=== PATIENT | female | born 1945 | race Caucasian/White ===

== ENCOUNTER 2016-11-14 10:34 | Outpatient (CLI) | payer MEDICARE, OTHER | END 2016-11-14 10:35 | disposition home or self-care (01) | DX: Z12.31 Encounter for screening mammogram for malignant neoplasm of breast (principal); Z80.3 Family history of malignant neoplasm of breast ==

== ENCOUNTER 2016-11-14 11:22 | Outpatient (CLI) | payer MEDICARE, OTHER | END 2016-11-14 11:23 | disposition home or self-care (01) | DX: M54.6 Pain in thoracic spine (principal); M47.892 Other spondylosis, cervical region ==

== ENCOUNTER 2017-07-19 09:04 | Outpatient (CLI) | payer MEDICARE, OTHER ==
--- NOTE | 2017-07-19 11:39 | CT Report ---
CT CHEST WITHOUT CONTRAST: 07/19/2017 CLINICAL INDICATION: Cough, shortness of breath. COMPARISON: 10/02/2013 TECHNIQUE: Axial CT images of the chest were obtained without intravenous contrast. FINDINGS: The heart and great vessels demonstrate mild atherosclerotic calcification. No hilar or m ediastinal lymphadenopathy is present. The lungs demonstrate stable emphysema. Minimal atelectasis is present. No focal infiltrate, effusion, or pneumothorax is seen. No suspicious pulmonary nodule or mass lesion. Limited evaluation of upper abdominal structures demonstrates normal adrenal glands. Osseous structures demonstrate degenerative changes. IMPRESSION: STABLE EMPHYSEMA. NO SIGNIFICANT INTERVAL CHANGE. In accordance with CT protocol optimization, one or more of the following dose reduction techniques w ere utilized for this exam: automated exposure control, adjustment of mA and/or KV based on patient size, or use of iterative reconstructive technique. JOB #: [id number] EXT JOB #:[id number]
== END 2017-07-19 09:05 | disposition home or self-care (01) ==
LOC: DI 09:04
PROVIDERS: ATTEND Physician Assistant
DX: J43.9 Emphysema, unspecified (principal)
CPT/HCPCS: 71250

== ENCOUNTER 2017-11-20 08:19 | Outpatient (CLI) | payer MEDICARE, OTHER ==
--- NOTE | 2017-11-21 16:00 | Mammography Report ---
DIGITAL SCREENING MAMMOGRAM: 11/20/2017 CLINICAL INDICATION: A 72-year-old with a family history of breast cancer, for screening. COMPARISON: 11/2016, 11/2015, 11/2014, 10/2013, 10/2012, 10/2011, 06/2010. TECHNIQUE: Routine CC and MLO projections were obtained of the breasts. FINDINGS: The breasts demonstrate heterogeneously dense fibroglandular parenchyma bilaterally. Punctate, typically benign calcifications are present. No suspicious masses, clustered microcalcifications, or regions of architectural distortion are identified. IMPRESSION: BENIGN FINDINGS. RECOMMENDATION: ROUTINE ANNUAL SCREENING UNLESS OTHERWISE CLINICALLY INDICATED. BIRADS CATEGORY 2-BENIGN FINDINGS. STANDARD QUALIFYING STATEMENTS: 1. This examination was reviewed with the aid of Computer-Aided Detection (CAD). 2. A negative or benign imaging report should not delay biopsy if clinically suspicious findings are present. Consider surgical consultation if warranted. More than 5% of cancers are not identified by imaging. 3. Dense breasts may obscure an underlying neoplasm. TD: 11/21/2017 16:00
== END 2017-11-20 08:20 | disposition home or self-care (01) ==
LOC: DI 08:19
PROVIDERS: ATTEND Physician Assistant
DX: Z12.31 Encounter for screening mammogram for malignant neoplasm of breast (principal); Z80.3 Family history of malignant neoplasm of breast
CPT/HCPCS: 77067

== ENCOUNTER 2017-12-26 12:51 | Outpatient (CLI) | payer MEDICARE, OTHER ==
--- NOTE | 2017-12-27 10:33 | DEXA Report ---
DEXA SCAN: 12/26/2017 CLINICAL INDICATION: Postmenopausal. TECHNIQUE: Dual energy x-ray absorptiometry (DXA) was performed on a [employer] system. Regions measured are the AP spine, femoral neck, and, if needed, forearm. COMPARISON: None. In accordance with the International Society for Clinical Densitometry (ISCD) guidelines, data from previous exams may be reanalyzed using current recommendations and techniques. This is done to allow a more accurate basis for comparison with the current study. FINDINGS: The data for the lumbar spine is as follows: REGION BMD (g/cm/cm) T-SCORE Z-SCORE L1 1.433 2.5 4.2 L2 1.393 1.6 3.3 L3 1.540 2.8 4.5 L4 1.292 0.8 2.4 TOTAL 1.410 1.9 3.6 NOTE: All evaluable vertebrae are used for classification. The data for the hip is as follows: REGION BMD (g/cm/cm) T-SCORE Z-SCORE Neck 0.709 -2.4 -0.6 TOTAL 0.729 -2.2 -0.7 NOTE: The femoral neck or total proximal femur, whichever is lowest, is used for classification. IMPRESSION: THE WHO CLASSIFICATION BASED ON THE INTERNATIONAL REFERENCE STANDARD IS OSTEOPENIA. THE FRACTURE RISK IS INCREASED. RECOMMENDATION: Patients with diagnosis of osteoporosis or osteopenia should have regular bone mineral density assessment. For those eligible for Medicare, routine testing is allowed once every 2 years. Testing frequency can be increased for patients who have rapidly progressing disease or for those who are receiving medical therapy to restore bone mass. COMMENT: World Health Organization (WHO) definitions for osteoporosis and osteopenia: NORMAL BMD: T-score at 1.0 or higher, fracture risk is low. OSTEOPENIA BMD: T-score between 1.0 and -2.5, fracture risk is increased. OSTEOPOROSIS BMD: T-score at 2.5 or lower, fracture risk high. National Osteoporosis Foundation recommends: 1. Obtain adequate dietary calcium (at least 1200 mg per day) and vitamin D (400 -800 international units per day). 2. Participate, as appropriate, in regular weightbearing and muscle- strengthening exercise. 3. Avoid tobacco use and reduce alcohol and caffeine intake. 4. For more detailed information see the website at www.NOF.org. MTDD
== END 2017-12-26 12:52 | disposition home or self-care (01) ==
LOC: DI 12:51
PROVIDERS: ATTEND Physician Assistant
DX: M85.88 Other specified disorders of bone density and structure, other site (principal); Z78.0 Asymptomatic menopausal state
CPT/HCPCS: 77080

== ENCOUNTER 2018-03-05 08:18 | Outpatient (CLI) | payer MEDICARE, OTHER ==
--- NOTE | 2018-03-05 15:31 | XRAY Preliminary Report ---
Exam: XR HIP W/PELVIS 2-3V RT IMPRESSION: 1. New mild degenerative changes right hip, grade one by Kellgren Russell classification. 2. Very slow interval enlargement of a subcentimeter sclerotic lesion right ischium. Appearance of th e lesion favors bone island although interval enlargement suggests indolent bony metastatic disease. Correlate clinically to determine significance. [facility] SITE ID: [id number]
--- NOTE | 2018-03-05 15:36 | XRAY Report ---
EXAM: RIGHT HIP AND PELVIS RADIOGRAPHY. EXAM DATE: 03/05/2018 12:43 PM. HISTORY: Right groin and right hip pain for one month. No precipitating injury. COMPARISONS: 10/02/2013. CT abdomen and pelvis 10/08/2015. TECHNIQUE: 1 view of the pelvis and 1 view of the hip. FINDINGS: Bones: Normal. No fracture or bone lesion. Joints: Normal left hip. Moderate osteitis pubis symphysis unchanged. New mild narrowing superior aspect of the right hip joint with new extremely minimal subcortical scle rosis along the adjacent acetabular roof. Right femoral head is of normal caliber without subcortical bony reactive changes. Stable marked degenerative disk disease at L4-L5 and L5-S1. Normal sacroiliac joints. Soft Tissues: Increasing caliber of an oval area of sclerosis in the right ischium, currently measuring 9 mm maximu m dimension, previously measuring 6 mm on the 2013 exam. IMPRESSION: 1. New mild degenerative changes right hip, grade one by Kellgren Russell classification. 2. Very slow interval enlargement of a subcentimeter sclerotic lesion right ischium. Appearance of th e lesion favors bone island although interval enlargement suggests indolent bony metastatic disease. Correlate clinically to determine significance. [facility] Referring Provider Line: [phone] SITE ID: [id number]
--- NOTE | 2018-03-05 15:36 | XRAY Preliminary Report ---
Exam: XR LUMBAR SPINE 2 VIEW IMPRESSION: 1. No acute nor subacute bony abnormality. 2. Old mild wedging thoracolumbar junction. 3. Progression of multilevel moderate to marked degenerative changes. Suspect multilevel central and neuroforaminal compromise due to such. [facility] SITE ID: [id number]
--- NOTE | 2018-03-05 15:39 | XRAY Report ---
EXAM: LUMBOSACRAL SPINE RADIOGRAPHY EXAM DATE: 03/05/2018 12:43 PM. CLINICAL HISTORY: Right groin and low back pain for one month. No precipitating injury. COMPARISONS: 10/20/2015. CT abdomen and pelvis 10/08/2015. TECHNIQUE: 3 views. FINDINGS: Alignment: Stable 7 mm degenerative anterior subluxation L3 on L4. Bones: Five jhj-oqf-osswzfi lumbar vertebral bodies are present. Old mild anterior wedging T10 to L1. No acute trabecular or cortical disruption. Several old left rib fractures. Disks: Progression of multilevel moderate to marked degenerative changes, sparing the L2-L3 level. Facets: Progression of marked degenerative changes throughout the lumbar spine, remaining greatest at the L3-L4 level. Sacroiliac Joints: Unremarkable. Soft Tissues: Normal. The visualized bowel gas pattern is normal. IMPRESSION: 1. No acute nor subacute bony abnormality. 2. Old mild wedging thoracolumbar junction. 3. Progression of multilevel moderate to marked degenerative changes. Suspect multilevel central and neural foraminal compromise due to such. [facility] Referring Provider Line: [phone] SITE ID: [id number]
--- NOTE | 2018-03-05 17:41 | Ultrasound Report ---
BILATERAL LOWER EXTREMITY VENOUS SONOGRAM: 03/05/2018 HISTORY: Swelling of the feet and ankles. TECHNIQUE: Real-time scanning by the youth ministry director, using both color flow and Doppler spectral analysis with multiple represented saved static images for review. FINDINGS: The bilateral common femoral, femoral, deep femoral, popliteal, and posterior tibial veins are well seen. There is normal augmentation, phasicity, compressibility, and documented flow. No evidence of intraluminal thrombus is seen. IMPRESSION: NEGATIVE FOR DEEP VENOUS THROMBOSIS BILATERAL LOWER EXTREMITIES. TD: 03/05/2018 15:15
--- NOTE | 2018-03-05 17:45 | Ultrasound Report ---
AORTIC SCREEN ULTRASOUND: 03/05/2018 HISTORY: Swelling of feet and ankles, hypertension, smoker, chronic headaches. TECHNIQUE: Real-time scanning of the aorta with saved static images reviewed. FINDINGS: Aortic measurements in centimeters as follows: Proximal Sagittal plane: 2.0 Mid Transverse plane: 1.8 x 1.9. Distal Transverse plane: 1.2 x 1.3. Iliac artery measurements in centimeters: Right common iliac artery transverse: 1 x 0.9. Left common iliac artery transverse: 0.9 x 0.8. IMPRESSION: NO EVIDENCE OF AN ABDOMINAL AORTIC ANEURYSM. TD: 03/05/2018 15:21 ADI
--- NOTE | 2018-03-08 09:43 | Ultrasound Report ---
CAROTID ULTRASOUND: 03/05/2018 HISTORY: Hypertension, smoker. TECHNIQUE: Realtime sonographic vascular imaging was performed through the carotid arteries using both color flow and Doppler spectral analysis. Multiple retail representative static images are saved for review. RIGHT Vessel PSV cm/sec EDV cm/sec ICA/CCA RSV Ratio Degree of Stenosis Plaque Estimate % RCCA Prox 75 RCCA Dist 56 14 RECA 87 RT BULB 48 16 0.85 CARLOS A Prox 64 22 1.14 CARLOS A Mid 76 28 1.35 CARLOS A Dist 79 26 1.40 RVA 55 RVA flow direction: Antegrade LEFT Vessel PSV cm/sec EDV cm/sec ICA/CCA RSV Ratio Degree of Stenosis Plaque Estimate % LCCA Prox 98 LCCA Dist 66 21 LECA 84 LFT BULB 62 17 0.93 LICA Prox 71 20 1.07 LICA Mid 73 28 1.10 LICA Dist 71 27 1.07 LVA 53 LVA flow direction: Antegrade Velocity criteria are extrapolated from diameter data as defined by the Society of Radiologists in Ultrasound Consensus Conference Radiology 2003; 229; 340-346. Degree of Stenosis % ICA PSV cm/sec ICA EDV cm/sec ICA/CCA PSV Ratio Plaque Estimate % Normal < 125 < 40 < 2.0 None <50 < 125 <40 < 2.0 < 50 50-69 125-130 40-100 2.0-4.0 >/=50 >/=70 but less than near occlusion > 230 > 100 > 4.0 >/=50 Near occlusion High, low or undetectable Variable Variable Visible Total occlusion Undetectable Not applicable Not applicable No detectable lumen FINDINGS: There is a small amount of plaque at the right carotid bifurcation. IMPRESSION: NO FLOW-LIMITING STENOSIS IN EITHER CAROTID SYSTEM. BILATERAL VERTEBRAL ARTERY ANTEGRADE BLOOD FLOW. MTDD
== END 2018-03-05 08:19 | disposition home or self-care (01) ==
LOC: DI 08:18
PROVIDERS: ATTEND Nurse Practitioner Family
DX: M79.89 Other specified soft tissue disorders (principal); R60.1 Generalized edema; R51 Headache; R10.31 Right lower quadrant pain; M54.5 Low back pain; G89.29 Other chronic pain; I10 Essential (primary) hypertension; F17.210 Nicotine dependence, cigarettes, uncomplicated
CPT/HCPCS: 72100; 76706; 93880; 93970

== ENCOUNTER 2019-01-10 08:21 | Outpatient (CLI) | payer MEDICARE, OTHER ==
--- NOTE | 2019-01-14 10:40 | DEXA Report ---
Reason: OSTEOPOROSIS Procedure Date: 01/10/2019 Accession Number: [id number] / [id number] Procedure: DEX - Dexa Spine and/or Hip CPT Code: FULL RESULT: EXAM: Dexa Spine and/or Hip DATE: 01/10/2019 9:00 AM CLINICAL HISTORY: OSTEOPOROSIS TECHNIQUE: Dual energy x-ray absorptiometry (DXA) was performed on a [email or web address] System. Regions measured are the AP Spine, femoral neck, and if needed forearm. COMPARISON: 12/26/2017 In accordance with the International Society for Clinical Densitometry (ISCD) guidelines, data from previous exams may be reanalyzed using current recommendations and techniques. This is done to allow a more accurate basis for comparison with the current study. FINDINGS: The data for the lumbar spine is as follows: BMD (g/cm/cm) T-SCORE Z-SCORE REGION L1 1.262 1.1 2.9 L2 1.343 1.2 2.9 L3 1.531 2.8 4.5 L4 1.210 0.1 1.8 TOTAL 1.335 1.3 3.0 NOTE: All evaluable vertebrae are used for classification The data for the hip is as follows: BMD (g/cm/cm) T-SCORE Z-SCORE REGION Neck 0.708 -2.4 -0.5 TOTAL 0.739 -2.1 -0.5 NOTE: The femoral neck or total proximal femur, whichever is lowest, is used for classification. DXA RESULTS SUMMARY: Spine SCAN DATE AGE BMD CHANGE VS CHANGE VS PREVIOUS PREVIOUS % 01/10/2019 [age] 1.335 -0.075* -5.3* 12/26/2017 [age] 1.410 * Denotes significant change at the 95% confidence level. Denotes dissimilar scan types or analysis methods. DXA RESULTS SUMMARY: Hip SCAN DATE AGE BMD CHANGE VS CHANGE VS PREVIOUS PREVIOUS % [birth year][age]10/2019 [age] 0.739 0.010 1.4 12[birth year]2017 72.3 0.729 * Denotes significant change at the 95% confidence level. Denotes dissimilar scan types or analysis methods. * Denotes significant change at the 95% confidence level. Denotes dissimilar scan types or analysis methods. IMPRESSION: THE WHO CLASSIFICATION BASED ON THE INTERNATIONAL REFERENCE STANDARD IS OSTEOPENIA. THE FRACTURE RISK IS INCREASED. RECOMMENDATION: Patients with diagnosis of osteoporosis or osteopenia should have regular bone mineral density assessment. For those eligible for Medicare, routine testing is allowed once every 2 years. Testing frequency can be increased for patients who have rapidly progressing disease or for those who are receiving medical therapy to restore bone mass. COMMENT: World Health Organization (WHO) definitions for osteoporosis and osteopenia: NORMAL BMD: T-score at -1.0 or higher, fracture risk is low OSTEOPENIA BMD: T-score between -1.0 and -2.5, fracture risk is increased. OSTEOPOROSIS BMD: T-score at -2.5 or lower, fracture risk is high. National Osteoporosis Foundation recommends: 1. Obtain adequate dietary calcium (at least 1200 mg per day) and vitamin D (400-800 international units per day). 2. Participate, as appropriate, in regular weightbearing and muscle-strengthening exercise. 3. Avoid tobacco use and reduce alcohol and caffeine intake. 4. For more detailed information see the website at www.NOF.org.
== END 2019-01-10 08:22 | disposition home or self-care (01) ==
LOC: DI 08:21
PROVIDERS: ATTEND Physician Assistant
DX: M85.88 Other specified disorders of bone density and structure, other site (principal)
CPT/HCPCS: 77080

== ENCOUNTER 2019-01-10 10:12 | Outpatient (CLI) | payer MEDICARE, OTHER ==
--- NOTE | 2019-01-14 10:40 | Mammography Report ---
Reason: SCREENING MAMMO Procedure Date: 01/10/2019 Accession Number: [id number] / [id number] Procedure: MGN - Screening Mammo Dig Bilat CPT Code: FULL RESULT: EXAM: Screening Mammo Dig Bilat DATE: 01/10/2019 10:36 AM CLINICAL HISTORY: Screening asymptomatic. TECHNIQUE: (B) - Bilateral CC and MLO views were obtained. COMPARISON: None PARENCHYMAL PATTERN: (A) - The breasts demonstrate scattered fibroglandular densities bilaterally. FINDINGS: Stable punctate benign-appearing microcalcifications upper outer quadrant left breast. There are no suspicious masses, calcifications, or areas of distortion. IMPRESSION: Benign findings. BI-RADS category 2. RECOMMENDATION: (ANNUAL) - Recommend routine annual screening mammography. BI-RADS CATEGORY: (2) - Benign Findings. STANDARD QUALIFYING STATEMENTS: 1. This examination was not reviewed with the aid of Computer-Aided Detection (CAD). 2. A negative or benign imaging report should not preclude biopsy if clinically suspicious findings are present. 3. Dense breasts may obscure an underlying neoplasm. 4. This examination was reviewed without the aid of 3D breast imaging (tomosynthesis).
== END 2019-01-10 10:13 | disposition home or self-care (01) ==
LOC: DI.N 10:12
PROVIDERS: ATTEND Physician Assistant
DX: Z12.31 Encounter for screening mammogram for malignant neoplasm of breast (principal)
CPT/HCPCS: 77067

== ENCOUNTER 2019-04-11 09:56 | Outpatient (CLI) | payer MEDICARE, OTHER ==
--- NOTE | 2019-04-12 14:47 | XRAY Report ---
Reason: PAIN IN RIGHT HIP JOINT Procedure Date: 04/11/2019 Accession Number: [id number] / [id number] Procedure: XRS - Hip w/Pelvis 2-3V RT CPT Code: FULL RESULT: EXAM: RIGHT HIP RADIOGRAPHY EXAM DATE: 04/11/2019 10:15 AM. CLINICAL HISTORY: PAIN IN RIGHT HIP JOINT. COMPARISON: HIP W/PELVIS 2-3V RT 03/05/2018 12:37 PM HIP 2 VIEW RT 10/02/2013 8:02 AM. TECHNIQUE: 2 views. FINDINGS: Bones: No acute fractures. Visualized lower lumbar spine demonstrate severe degenerative changes. Stable 9 mm sclerotic focus in the right ischium. Joints: No acute fractures. Moderate narrowing and degenerative change of the right hip. Soft Tissues: Unremarkable. IMPRESSION: No interval change. No acute radiographic abnormalities. [facility]
== END 2019-04-11 09:57 | disposition home or self-care (01) ==
LOC: DI.S 09:56
PROVIDERS: ATTEND Physician Assistant
DX: M25.551 Pain in right hip (principal)

== ENCOUNTER 2019-11-11 08:36 | Outpatient (CLI) | payer MEDICARE, OTHER ==
--- NOTE | 2019-11-12 06:47 | CT Report ---
Reason: EMPHYSEMA Procedure Date: 11/11/2019 Accession Number: [id number] / [id number] Procedure: CT - CHEST WO CPT Code: Final Report FULL RESULT: EXAM: CT CHEST EXAM DATE: 11/11/2019 09:11 AM. CLINICAL HISTORY: EMPHYSEMA. COMPARISONS: CHEST W/O 07/19/2017 9:34 AM. TECHNIQUE: Routine helical CT imaging was performed through the chest. IV contrast: None. Reconstructions: Coronal and sagittal. In accordance with CT protocol optimization, one or more of the following dose reduction techniques were utilized for this exam: automated exposure control, adjustment of mA and/or KV based on patient size, or use of iterative reconstructive technique. FINDINGS: Lungs/Pleura: Stable emphysematous changes. No suspicious nodule or mass lesion. No effusion or pneumothorax. Mediastinum: Mild atherosclerotic calcifications. No cardiomegaly or adenopathy. Bones: Degenerative changes. Visualized Abdomen: Unremarkable. Other: None. IMPRESSION: Stable emphysema. No suspicious pulmonary nodules. No significant interval change. [facility]
== END 2019-11-11 08:37 | disposition home or self-care (01) ==
LOC: DI 08:36
PROVIDERS: ATTEND Physician Assistant
DX: J43.9 Emphysema, unspecified (principal)
CPT/HCPCS: 71250

== ENCOUNTER 2020-03-11 10:00 | Outpatient (CLI) | payer MEDICARE, OTHER ==
--- NOTE | 2020-03-12 08:52 | Mammography Report ---
BILATERAL DIGITAL SCREENING MAMMOGRAM 3D/2D: 03/11/2020 CLINICAL: Routine screening. Comparison is made to exams dated: 01/10/2019 mammogram, 11/20/2017 mammogram, and 11/14/2016 mammogram - [facility]. The tissue of both breasts is heterogeneously dense. This may lower the sensitivity of mammography. No significant masses, calcifications, or other findings are seen in either breast. There has been no significant interval change. IMPRESSION: NEGATIVE There is no mammographic evidence of malignancy. A 1 year screening mammogram is recommended. This exam was interpreted at Station ID: [id number]. NOTE: For mammograms, a report in lay terms will be sent to the patient. Approximately 15% of breast malignancies will not be visualized mammographically. In the management of a palpable breast mass, a negative mammogram must not discourage biopsy of a clinically suspicious lesion. Electronically Signed By: Karthikeyan Brown M.D. aty/:03/11/2020 12:58:48 ACR BI-RADS Category 1: Negative 3341F PARENCHYMAL PATTERN: (D) - The breast(s) demonstrate(s) heterogeneously dense fibroglandular florencia hong. BI-RADS CATEGORY: (1) - 1 RECOMMENDATION: (ANNUAL) - Recommend routine annual screening mammography. [id number] 1 year screening LATERALITY: (B)
== END 2020-03-11 10:01 | disposition home or self-care (01) ==
LOC: DI 10:00
PROVIDERS: ATTEND Physician Assistant
DX: Z12.31 Encounter for screening mammogram for malignant neoplasm of breast (principal)
CPT/HCPCS: 77063; 77067

== ENCOUNTER 2020-03-11 10:01 | Outpatient (CLI) | payer MEDICARE, OTHER ==
--- NOTE | 2020-03-11 11:59 | DEXA Report ---
Reason: POST MENOPAUSAL STATUS Procedure Date: 03/11/2020 Accession Number: [id number] / [id number] Procedure: DEX - Dexa Spine and/or Hip CPT Code: Final Report FULL RESULT: PROCEDURE: Dexa Spine and/or Hip INDICATIONS: POST MENOPAUSAL STATUS TECHNIQUE: Dual energy x-ray absorptiometry (DXA) was performed on a [employer]. Regions measured are the AP Spine, femoral neck, and if needed forearm. COMPARISON: 01/10/2019. FINDINGS: Lumbar Spine: Bone Mineral Density 1.406 g/cm/cm, T score 1.9, previously 1.3 Left Hip: Bone Mineral Density 0.739 g/cm/cm, T score -2.1, previously -2.1 Left Femoral Neck: Bone Mineral Density 0.681 g/cm/cm, T score -2.6, previously -2.4 (T score greater or equal to -1.0: NORMAL) (T score from -1.1 to -2.4: OSTEOPENIA) (T score less than or equal to -2.5 to: OSTEOPOROSIS) Impression: Osteoporosis in the left femoral neck. Osteopenia in the left hip. Overall T score is stable to slightly worsened compared to 2019. Patients with diagnosis of osteoporosis or osteopenia should have regular bone mineral density assessment. For those eligible for Medicare, routine testing is allowed once every 2 years. Testing frequency can be increased for patients who have rapidly progressing disease or for those who are receiving medical therapy to restore bone mass. Reviewed by: Mick Mena MD on 03/11/2020 11:57 AM PDT Approved by: Mick Mena MD on 03/11/2020 11:57 AM PDT Station ID: [id number]
== END 2020-03-11 10:02 | disposition home or self-care (01) ==
LOC: DI 10:01
PROVIDERS: ATTEND Physician Assistant
DX: M81.8 Other osteoporosis without current pathological fracture (principal); M85.88 Other specified disorders of bone density and structure, other site
CPT/HCPCS: 77080

== ENCOUNTER 2020-12-07 11:05 | Outpatient (CLI) | payer MEDICARE, OTHER ==
[2020-12-07 15:13] LABS: BASOPHILS % (AUTO) 0.5 %; EOSINOPHILS # (AUTO) 0.1 10^3/uL (0.0-0.7); EOSINOPHILS % (AUTO) 1.8 %; HCT - HEMATOCRIT 35.7 % (37.0-47.0); HGB - HEMOGLOBIN 11.3 g/dL (12.0-16.0); LYMPHOCYTES # (AUTO) 1.9 10^3/uL (1.5-3.5); LYMPHOCYTES % (AUTO) 33.8 %; MEAN CORPUSCULAR HEMOGLOBIN 31.6 pg (27.0-31.0); MEAN CORPUSCULAR HGB CONC 31.7 g/dL (32.0-36.0); MEAN CORPUSCULAR VOLUME 99.7 fL (81.0-99.0); MEAN PLATELET VOLUME 10.2 fL (7.9-10.8); MONOCYTES # (AUTO) 0.4 10^3/uL (0.0-1.0); MONOCYTES % (AUTO) 6.8 %; NEUTROPHILS # (AUTO) 3.1 10^3/uL (1.5-6.6); NEUTROPHILS % (AUTO) 56.7 %; PLT - PLATELET COUNT 290 10^3/uL (130-450); RED BLOOD COUNT 3.58 10^6/uL (4.20-5.40); RED CELL DISTRIBUTION WIDTH 13.2 % (12.0-15.0); WHITE BLOOD COUNT 5.5 x10^3/uL (4.8-10.8)
[2020-12-07 15:26] LABS: ALBUMIN 4.3 g/dL (3.2-5.5); ALBUMIN/GLOBULIN RATIO 1.7 (1.0-2.2); ALKALINE PHOSPHATASE 50 IU/L (42-121); ALT ALANINE AMINOTRANSFERASE 13 IU/L (10-60); AST ASPARTATE AMINOTRANSFERASE 18 IU/L (10-42); BILIRUBIN,TOTAL 0.8 mg/dL (0.2-1.0); BUN - BLOOD UREA NITROGEN 23 mg/dL (6-20); CARBON DIOXIDE - CO2 23 mmol/L (21-32); CHLORIDE 108 mmol/L (101-111); CHOL/HDL RATIO 3.8 (<4.4); CHOLESTEROL 170 mg/dL; CREATININE 0.9 mg/dL (0.4-1.0); GFR - MDRD 61 (>89); GLUCOSE 92 mg/dL (70-100); HDL CHOLESTEROL 45 mg/dL; LDL CHOLESTEROL,CALCULATED 96 mg/dL; LDL/HDL RATIO 2.1 (<4.4); POTASSIUM 4.3 mmol/L (3.5-5.0); SODIUM 137 mmol/L (135-145); TOTAL PROTEIN 6.9 g/dL (6.7-8.2); TRIGLYCERIDES 144 mg/dL; VLDL CHOLESTEROL 29 mg/dL
[2020-12-07 15:55] LABS: THYROID STIMULATING HORMONE 1.06 uIU/mL (0.34-5.60)
[2020-12-07 15:57] LABS: FREE T4 (FREE THYROXINE) 0.83 ng/dL (0.58-1.64)
== END 2020-12-07 11:06 | disposition home or self-care (01) ==
LOC: LAB.S 11:05
PROVIDERS: ATTEND Nurse Practitioner Family
DX: E83.52 Hypercalcemia (principal); R94.4 Abnormal results of kidney function studies; E78.5 Hyperlipidemia, unspecified; I10 Essential (primary) hypertension
CPT/HCPCS: 36415; 80053; 80061; 81599; 82306; 82310; 82330; 83721; 83970; 84439; 84443; 85025

== ENCOUNTER 2020-12-22 08:37 | Outpatient (CLI) | payer MEDICARE, OTHER ==
--- NOTE | 2020-12-22 09:39 | CT Report ---
PROCEDURE: Low Dose Lung Cancer Screen INDICATIONS: CURRENT SMOKER TECHNIQUE: Noncontrast low-dose 5 mm thick sections acquired from the pulmonary apices to the posterior costophr enic angles. 7 mm thick coronal and sagittal MIP reformats were then acquired. For radiation dose r eduction, the following was used: automated exposure control, adjustment of mA and/or kV according t o patient size. COMPARISON: CT chest 11/11/2019, 07/19/2017. FINDINGS: Image quality: Excellent. Lungs and pleura: Stable small scattered foci of ground glass opacity, many of these are associated with mild areas of cystic change. These are similar dating back to 2017. For example: -Right upper lobe measuring 0.6 cm, (4/74). -Right upper lobe measuring 0.7 cm, (4/103). -Left lower lobe measuring 0.8 cm, (4/21). No new areas of ground glass opacity. No pulmonary mass. No significant solid pulmonary nodules. Mild bronchial wall thickening and the stomach is fairly plugging similar the prior exam. Mild streaky op acity at the lung bases most compatible with atelectasis. Mediastinum: Heart size is normal. Moderate three-vessel coronary artery calcifications. No pericar dial effusion. No mediastinal adenopathy by size criteria. Thoracic aorta and central pulmonary art eries are normal in size. Esophagus is normal in caliber. No hiatal hernia. Bones and chest wall: No suspicious bony lesions. No vertebral body compression fractures. No axil khai or supraclavicular adenopathy by size criteria. Thyroid is unremarkable. Abdomen: Subcentimeter hypodensity in the left lobe of the liver measuring 0.6 cm, (3/57), unchanged since at least 2017. Moderate calcified plaque in the abdominal aorta. Visualized upper abdomen may d organs and bowel loops appear normal in the absence of contrast. IMPRESSION: 1. Several small scattered foci of groundglass opacity with associated cystic change since 2017. Lung RADS 2. Benign appearance or behavior. Recommend continued screening with low dose CT in 12 months. 2. Mild peribronchial thickening and distal mucus airway plugging similar the prior exams. 3. Moderate three-vessel coronary artery calcifications. Reviewed by: Mick Mena MD on 12/22/2020 9:37 AM PDT Approved by: Mick Mena MD on 12/22/2020 9:37 AM PDT Station ID: [id number]
== END 2020-12-22 08:38 | disposition home or self-care (01) ==
LOC: DI 08:37
PROVIDERS: ATTEND Physician Assistant
DX: Z12.2 Encounter for screening for malignant neoplasm of respiratory organs (principal); F17.210 Nicotine dependence, cigarettes, uncomplicated; J98.11 Atelectasis

== ENCOUNTER 2021-03-14 10:54 | Outpatient (CLI) | payer MEDICARE, OTHER ==
--- NOTE | 2021-03-15 07:56 | Mammography Report ---
BILATERAL DIGITAL SCREENING MAMMOGRAM 3D/2D WITH EXAGGERATED CC: 03/14/2021 CLINICAL: Family history of breast cancer. Comparison is made to exams dated: 03/11/2020 mammogram, 01/10/2019 mammogram, 11/20/2017 mammogram, mammogram, and 11/29/2015 mammogram - [facility]. The tissue of both breast s is heterogeneously dense. This may lower the sensitivity of mammography. There is a 1 cm irregular equal density asymmetry with an obscured margin in the left breast at 12 o' clock middle depth. This is more prominent and increased in size. No other significant masses, calcifications, or other findings are seen in either breast. IMPRESSION: INCOMPLETE: NEEDS ADDITIONAL IMAGING EVALUATION The 1 cm irregular equal density asymmetry in the left breast is indeterminate. Additional views wit h possible ultrasound are recommended. This exam was interpreted at Station ID: [id number]. NOTE: For mammograms, a report in lay terms will be sent to the patient. Approximately 15% of breast malignancies will not be visualized mammographically. In the management of a palpable breast mass, a negative mammogram must not discourage biopsy of a clinically suspicious lesion. Electronically Signed By: Karthikeyan Brown M.D. aty/:03/14/2021 13:11:28 ACR BI-RADS Category 0: Incomplete 3340F PARENCHYMAL PATTERN: (D) - The breast(s) demonstrate(s) heterogeneously dense fibroglandular florencia hong. BI-RADS CATEGORY: (0) - 0 Mammo and [place] [id number] Immediate follow-up LATERALITY: (L)
== END 2021-03-14 10:55 | disposition home or self-care (01) ==
LOC: DI.S 10:54
DX: Z12.31 Encounter for screening mammogram for malignant neoplasm of breast (principal); Z80.3 Family history of malignant neoplasm of breast; R92.8 Other abnormal and inconclusive findings on diagnostic imaging of breast

== ENCOUNTER 2021-04-13 09:06 | Outpatient (CLI) | payer MEDICARE, OTHER ==
--- NOTE | 2021-04-14 12:49 | Mammography Report ---
UNILATERAL LEFT DIGITAL DIAGNOSTIC MAMMOGRAM 3D/2D: 04/13/2021 CLINICAL: Patient returns today to evaluate a focal asymmetry in the left breast. Comparison is made to exams dated: 03/14/2021 mammogram, 03/11/2020 mammogram, 01/10/2019 mammogram, mammogram, and 11/14/2016 mammogram - [facility]. The tissue of left breast is heterogeneously dense. This may lower the sensitivity of mammography. There is a 1 cm irregular asymmetry with an obscured margin in the left breast at 12 o'clock middle d epth. This asymmetry appears less prominent on the current exam and similar to multiple prior exams dating back to at least 11/14/2016. No other significant masses or calcifications are seen in the breast. IMPRESSION: BENIGN The 1 cm irregular asymmetry in the left breast is consistent with fibroglandular tissue and is benig n. There is no mammographic evidence of malignancy. A 1 year screening mammogram is recommended. This exam was interpreted at Station ID: [id number]. NOTE: For mammograms, a report in lay terms will be sent to the patient. Approximately 15% of breast malignancies will not be visualized mammographically. In the management of a palpable breast mass, a negative mammogram must not discourage biopsy of a clinically suspicious lesion. Electronically Signed By: Edgard jarquin/ryan:04/13/2021 10:05:39 ACR BI-RADS Category 2: Benign Finding(s) 3342F PARENCHYMAL PATTERN: (D) - The breast(s) demonstrate(s) heterogeneously dense fibroglandular florencia hong. BI-RADS CATEGORY: (2) - 2 RECOMMENDATION: (ANNUAL) - Recommend routine annual screening mammography. [id number] 1 year screening LATERALITY: (B)
== END 2021-04-13 09:07 | disposition home or self-care (01) ==
LOC: DI 09:06
PROVIDERS: ATTEND Nurse Practitioner Family
DX: R92.8 Other abnormal and inconclusive findings on diagnostic imaging of breast (principal)

== ENCOUNTER 2021-08-30 07:15 | Emergency (ER) | payer MEDICARE, OTHER ==
--- NOTE | 2021-08-30 07:33 | ED Physician Documentation ---
PD HPI Fall - Stated complaint Stated Complaint: GLF - Chief complaint Chief Complaint: Trauma Ch/Bk - History obtained from History obtained from: Patient - History of Present Illness Mechanism of injury: Tripped Fall distance: Standing position (walking down stairs 2 nights ago, fell and struck right trunk, with pain mainly right chest/ribs. Persistent pain and has worsened dyspnea overnight and today.) Where injury occurred: Home Injury(ies) location: Chest, Left Uppper Extremity (abrasion left forearm.). No: Head, Abdomen, Back Quality of pain: Pain, Sharp Associated symptoms: Dyspnea. No: LOC, AMS, Weakness, Paresthesias, Abdominal distension Worsens with: Movement, Palpation Contributing factors: Intoxicated (she was at her birthday [employer], so had had some drinks. Denies regular alcohol use.). No: Anticoagulated Similar symptoms before: Has not had sx before Recently seen: Not recently seen Review of Systems Constitutional: denies: Fever, Chills Cardiac: denies: Palpitations Respiratory: reports: Dyspnea, Cough, Wheezing GI: reports: Nausea. denies: Abdominal Pain, Vomiting, Constipation, Diarrhea Skin: denies: Abrasion (s), Laceration (s) Neurologic: reports: Generalized weakness. denies: Focal weakness, Numbness, Altered mental status, Headache, Head injury PD PAST MEDICAL HISTORY - Past Medical History Cardiovascular: Hypertension, High cholesterol Respiratory: COPD, Emphysema Endocrine/Autoimmune: None GI: None : None HEENT: None Psych: None Musculoskeletal: None Derm: None - Past Surgical History General: Colonoscopy Ortho: Other /WAREHOUSE OPERATOR: Hysterectomy - Present Medications Home Medications: Ambulatory Orders Medication Instructions Recorded Confirmed Aspirin [Aspir 81] 81 mg ORAL DAILY 04/16/14 08/30/21 Atenolol 100 mg ORAL DAILY 04/16/14 08/30/21 Lisinopril 40 mg DAILY 04/16/14 08/30/21 Pravastatin Sodium 40 mg DAILY 04/16/14 08/30/21 Albuterol Sulf [Ventolin Hfa 2 - 3 puffs INH Q4HR PRN #1 inhaler 08/30/21 Inhaler] Alendronate [Fosamax] 70 mg PO Q7D 08/30/21 08/30/21 Cholecalciferol [Vitamin D3] 5,000 unit PO DAILY 08/30/21 08/30/21 Fluticasone Propion/Salmeterol 1 each IH BID 30 Days #1 unit 08/30/21 [Fluticasone-Salmeterol 250-50] Ibuprofen 600 mg PO TID PRN 08/30/21 08/30/21 Triamterene/Hydrochlorothiazid 1 each PO DAILY 08/30/21 08/30/21 [Maxzide 37.5 mg-25 mg Tablet] dexAMETHasone [Decadron] 4 mg PO DAILY #5 tablet 08/30/21 oxyCODONE [Roxicodone] 5 mg PO Q6H PRN #20 tablet 08/30/21 - Allergies Allergies/Adverse Reactions: Allergies Allergy/AdvReac Type Severity Reaction Status Date / Time No Known Drug Allergies Allergy Verified 08/30/21 07:22 - Social History Does the pt smoke?: Yes Smoking Status: Current every day smoker Does the pt drink ETOH?: Yes Does the pt have substance abuse?: No - Immunizations Immunizations are current?: Yes PD ED PE NORMAL - Vitals Vital signs reviewed: Yes (sats 87% RA, better with just 2 lpm NC) - General General: Alert and oriented X 3, Well developed/nourished, Other (appears in pain with guarded respirations.) - HEENT HEENT: Atraumatic - Neck Neck: Supple, no meningeal sign, No adenopathy, Other (some tenderness lower cervical area.) - Cardiac Cardiac: RRR, No murmur - Respiratory Respiratory: Other (right posterior chest wall with tenderness generally and particular upper scapular area. Tender without deformity medial clavicle area. No dislocation of the medial end. ). No: Clear bilaterally (wheezing diffusely and tight resps with limited tidal volume due to pain.) - Abdomen Abdomen: Soft, Non tender - Back Back: No CVA TTP, No spinal TTP - Derm Derm: Normal color, Warm and dry - Extremities Extremities: No tenderness to palpate, Normal ROM s pain - Neuro Neuro: Alert and oriented X 3, No motor deficit, Normal speech Results - Vitals Vitals: Oxygen O2 Source Room air Oxygen Flow Rate 4 - Labs Labs: Laboratory Tests 08/30/21 08/30/21 08/30/21 07:38 07:38 07:38 WBC 11.9 H RBC 4.07 L Hgb 13.1 Hct 39.1 MCV 96.1 MCH 32.2 H MCHC 33.5 RDW 13.3 Plt Count 279 MPV 8.7 Neut # (Auto) 10.1 H Lymph # (Auto) 1.0 L [place] # (Auto) 0.6 Eos # (Auto) 0.0 Baso # (Auto) 0.0 Absolute Nucleated RBC 0.00 Nucleated RBC % 0.0 Sodium 140 Potassium 4.5 Chloride 105 Carbon Dioxide 20 L Anion Gap 15.0 H BUN 28 H Creatinine 1.2 H Estimated GFR (MDRD) 44 L Glucose 102 H Calcium 10.3 Total Bilirubin 1.1 H AST 52 H ALT 34 Alkaline Phosphatase 60 Troponin I High Sens B-Natriuretic Peptide 106 H Total Protein 7.4 Albumin 4.4 Globulin 3.0 Albumin/Globulin Ratio 1.5 Lipase 32 Nasal Adenovirus (PCR) Nasal B. parapertussis DNA (PCR) Nasal Coronavir 229E PCR Nasal Coronavir HKU1 PCR Nasal Coronavir NL63 PCR Nasal Coronavir OC43 PCR Nasal Enterovir/Rhinovir PCR Nasal Influenza B PCR Nasal Influenza A PCR Nasal Parainfluen 1 PCR Nasal Parainfluen 2 PCR Nasal Parainfluen 3 PCR Nasal Parainfluen 4 PCR Nasal RSV (PCR) Nasal B.pertussis DNA PCR Nasal C.pneumoniae (PCR) Musa Human Metapneumo PCR Nasal M.pneumoniae (PCR) Nasal SARS-CoV-2 (PCR) 08/30/21 08/30/21 07:38 08:45 WBC RBC Hgb Hct MCV MCH MCHC RDW Plt Count MPV Neut # (Auto) Lymph # (Auto) [place] # (Auto) Eos # (Auto) Baso # (Auto) Absolute Nucleated RBC Nucleated RBC % Sodium Potassium Chloride Carbon Dioxide Anion Gap BUN Creatinine Estimated GFR (MDRD) Glucose Calcium Total Bilirubin AST ALT Alkaline Phosphatase Troponin I High Sens 6.0 B-Natriuretic Peptide Total Protein Albumin Globulin Albumin/Globulin Ratio Lipase Nasal Adenovirus (PCR) NOT DETECTED Nasal B. parapertussis DNA (PCR) NOT DETECTED Nasal Coronavir 229E PCR NOT DETECTED Nasal Coronavir HKU1 PCR NOT DETECTED Nasal Coronavir NL63 PCR NOT DETECTED Nasal Coronavir OC43 PCR NOT DETECTED Nasal Enterovir/Rhinovir PCR NOT DETECTED Nasal Influenza B PCR NOT DETECTED Nasal Influenza A PCR NOT DETECTED Nasal Parainfluen 1 PCR NOT DETECTED Nasal Parainfluen 2 PCR NOT DETECTED Nasal Parainfluen 3 PCR NOT DETECTED Nasal Parainfluen 4 PCR NOT DETECTED Nasal RSV (PCR) NOT DETECTED Nasal B.pertussis DNA PCR NOT DETECTED Nasal C.pneumoniae (PCR) NOT DETECTED Musa Human Metapneumo PCR NOT DETECTED Nasal M.pneumoniae (PCR) NOT DETECTED Nasal SARS-CoV-2 (PCR) NOT DETECTED - Rads (name of study) chest xray Radiology: Prelim report reviewed (no fractures nor PTX), EMP read contemporaneously (consider fracture right 5th rib versus artifact), See rad report head CT Radiology: Prelim report reviewed (negatie) cervical CT Radiology: Prelim report reviewed (no fractures) chest CT Radiology: Prelim report reviewed (posterior first and 3rd rib fractures. No PTX. Some atelectasis.) abd CT Radiology: Prelim report reviewed (no organ injury), See rad report PD MEDICAL DECISION MAKING - ED course Complexity details: reviewed results, re-evaluated patient (quite improved pain and able to breath reasonably. Sats and wheezing improved. Considered hospitalization but she improved well and feels okay going home. ), considered differential, d/w patient ED course: Based on initial CXR and clinical, I was expected at least one and likely several fractures. Did general scans to ensure not other inuuries. CT chest was only positive with 2 rib fractures. Her breathing improved with pain meds and nebs x 2, with subsequent sats 96% RA. She is okay going home with meds and inhalers. Departure - Departure Disposition: 01 Home, Self Care Clinical Impression: COPD exacerbation Accidental fall Qualifiers: Encounter type: initial encounter Qualified Code(s): W19.XXXA - Unspecified fall, initial encounter Forearm abrasion Qualifiers: Encounter type: initial encounter Laterality: left Qualified Code(s): S50.812A - Abrasion of left forearm, initial encounter Right rib fracture Qualifiers: Encounter type: initial encounter Rib fracture type: multiple ribs Fracture type: closed Qualified Code(s): S22.41XA - Multiple fractures of ribs, right side, initial encounter for closed fracture Condition: Stable Record reviewed to determine appropriate education?: Yes Instructions: ED COPD Flare, ED Fx Rib Prescriptions: Albuterol Sulf [Ventolin Hfa Inhaler] 2 - 3 puffs INH Q4HR PRN #1 inhaler PRN Reason: Shortness Of Air/Wheezing dexAMETHasone [Decadron] 4 mg PO DAILY #5 tablet Fluticasone Propion/Salmeterol [Fluticasone-Salmeterol 250-50] 1 each IH BID 30 Days #1 unit oxyCODONE [Roxicodone] 5 mg PO Q6H PRN #20 tablet PRN Reason: Pain Comments: You have 2 rib fractures on the right, on the first and third ribs by the radiology report. There may be an additional 1 at the fifth rib to not confirmed on the CT scan. Use the albuterol inhaler 2 to 3 puffs 4 times a day regularly to help open the airways. Use the incentive spirometer 4 times a day as well to help open the airways and improve airflow. Decadron steroid anti-inflammatory daily for 5 more days. After that start the inhaler Diskus twice daily for the next month. Use Tylenol 500 mg 4 times a day for the next 1 to 2 weeks. To that add oxycodone every 6 hours if needed for pain. I would anticipate improvement over the next several days to week or so. The rib fractures will take a month to 6 weeks to heal up. Follow-up with your primary care in the next week, call for an appointment. I transmitted your prescriptions to [facility] pharmacy in [place]. I am prescribing a short course of narcotic pain medication for you. These are potentially dangerous and addictive medications that should be used carefully. These medications may constipate you. Take an ljiz-xlk-[id number] stool softener such as docusate twice daily with plenty of water while taking these medications. If you go 24 hours without a bowel movement, take vwyq-ogt-hyrryoe MiraLAX, per package instructions. Do not drink or drive while taking these medications. If you received narcotic or sedating medications while in the emergency department do not drive for 24 hours. Store this medication in a safe, secure place and out of reach of children. It is a violation of federal law to give or sell this medication to another person or to use in a manner other than prescribed. The ED will not refill narcotic prescriptions, including prescriptions lost or stolen. You can dispose of unwanted medications at the [facility], [facility]'s office or at several pharmacies such as [facility]. Discharge Date/Time: 08/30/21 12:45
[2021-08-30] MEDS ORDERED: SODIUM CHLORIDE 0.9% 1,000 ML IV STA (07:39)
[2021-08-30] MEDS ORDERED: KETOROLAC 15 MG/ML VIAL IVP STA (07:40)
[2021-08-30] MEDS ORDERED: ALBUTEROL NEB 2.5 MG/3 ML INH STA (07:40)
[2021-08-30] MEDS ORDERED: HYDROmorphone 1 MG/ML CARPUJECT IVP STA ×2 (07:40→09:49)
[2021-08-30 07:49] LABS: BASOPHILS % (AUTO) 0.3 %; EOSINOPHILS % (AUTO) 0.1 %; HCT - HEMATOCRIT 39.1 % (37.0-47.0); HGB - HEMOGLOBIN 13.1 g/dL (12.0-16.0); LYMPHOCYTES % (AUTO) 8.6 %; MEAN CORPUSCULAR HEMOGLOBIN 32.2 pg (27.0-31.0); MEAN CORPUSCULAR HGB CONC 33.5 g/dL (32.0-36.0); MEAN CORPUSCULAR VOLUME 96.1 fL (81.0-99.0); MEAN PLATELET VOLUME 8.7 fL (7.9-10.8); MONOCYTES # (AUTO) 0.6 10^3/uL (0.0-1.0); MONOCYTES % (AUTO) 5.1 %; NEUTROPHILS # (AUTO) 10.1 10^3/uL (1.5-6.6); NEUTROPHILS % (AUTO) 85.4 %; PLT - PLATELET COUNT 279 10^3/uL (130-450); RED BLOOD COUNT 4.07 10^6/uL (4.20-5.40); RED CELL DISTRIBUTION WIDTH 13.3 % (12.0-15.0); WHITE BLOOD COUNT 11.9 x10^3/uL (4.8-10.8)
[2021-08-30 07:59] LABS: ALBUMIN 4.4 g/dL (3.2-5.5); ALBUMIN/GLOBULIN RATIO 1.5 (1.0-2.2); BILIRUBIN,TOTAL 1.1 mg/dL (0.2-1.0); CALCIUM 10.3 mg/dL (8.5-10.3); CREATININE 1.2 mg/dL (0.4-1.0); POTASSIUM 4.5 mmol/L (3.5-5.0); TOTAL PROTEIN 7.4 g/dL (6.7-8.2)
[2021-08-30] MEDS ORDERED: IOVERSOL 320 100 ML VIAL IVP ONE ×2 (08:02→09:06)
--- NOTE | 2021-08-30 08:31 | XRAY Report ---
PROCEDURE: Chest 1 View X-Ray INDICATIONS: chest pain TECHNIQUE: One view of the chest was acquired. COMPARISON: CT chest 11/11/2019. FINDINGS: Surgical changes and devices: None. Lungs and pleura: There is hyperinflation of the lungs with mild flattening of hemidiaphragms compat ible with COPD. No focal consolidation. No pleural effusions or pneumothorax. Mediastinum: Mediastinal contours appear normal. Heart size is normal. Bones and chest wall: There are a few healed left rib fractures. Overlying soft tissues appear unrema rkable. IMPRESSION: 1. Findings compatible with COPD without definite acute cardiopulmonary disease. Reviewed by: Alfredo Mishra MD on 08/30/2021 8:30 AM [facility] Approved by: Alfredo Mishra MD on 08/30/2021 8:30 AM [facility] Station ID: [id number]
--- NOTE | 2021-08-30 08:50 | CT Report ---
PROCEDURE: HEAD WO INDICATIONS: fall 2 days ago, polytrauma TECHNIQUE: Noncontrast 4.5 mm thick angled axial sections acquired from the foramen magnum to the vertex. For r adiation dose reduction, the following was used: automated exposure control, adjustment of mA and/or kV according to patient size. COMPARISON: 10/08/2015. FINDINGS: Image quality: Excellent. CSF spaces: Basal cisterns are patent. No extra-axial fluid collections. Ventricles are normal in size and shape. Brain: No intracranial hemorrhage, mass, or mass effect. Rodriguez-white matter interface is preserved. T here are a few periventricular white matter hypodensities consistent with mild chronic small vessel i schemic changes. Skull and face: Calvarium and visualized facial bones are intact, without suspicious lesions. Sinuses: Visualized sinuses and mastoids are clear. IMPRESSION: 1. No acute intracranial abnormality. 2. Mild chronic white matter small vessel ischemic changes. Reviewed by: Alfredo Mishra MD on 08/30/2021 8:49 AM PST Approved by: Alfredo Mishra MD on 08/30/2021 8:49 AM PST Station ID: [id number]
--- NOTE | 2021-08-30 09:00 | CT Report ---
PROCEDURE: CHEST W INDICATIONS: fall 2 days ago; mainly trunk injury CONTRAST: IV CONTRAST: Optiray 320 ml: 100 PO CONTRAST: *NO PO CONTRAST TECHNIQUE: After the administration of intravenous contrast, 1 mm axial images were acquired from the pulmonary apices through the posterior costophrenic angles. Axial 5 mm soft tissue kernel reconstructions were performed as well as 8 mm axial MIP and coronal and sagittal 5 mm reformations. For radiation dose reduction, the following was used: automated exposure control, adjustment of mA and/or kV according to patient size. COMPARISON: 12/22/2020, 11/11/2019 10/02/2013. Correlation is also made with the accompanying CT examina tions, 08/30/2021. FINDINGS: Image quality: Excellent. Lungs and pleura: Several groundglass type nodules are seen, which overall appear more prominent/more inflamed compared to the 12/22/2020 examination. No suspicious solid-appearing nodules are seen. No f rank consolidative infiltrates are seen. Within the left lower lobe, mucous plugging can be seen, as on series 3 images 168 through 224. No si gnificant associated atelectasis can be seen, however. No pleural effusions or pneumothorax. Central and peripheral airways are patent and normal in calibe r. Mediastinum: Heart size is normal. Moderate coronary artery calcification is seen. No pericardial e ffusion. No mediastinal or hilar adenopathy by size criteria. Thoracic aorta and central pulmonary arteries are normal in size. Esophagus is normal in caliber. No hiatal hernia. Bones and chest wall: Right-sided rib fractures are seen, including a minimally displaced right post erior first rib fracture, as on series 3 image 30 and a moderately displaced right posterior third ri b fracture, as on series 3 image 60. These fractures are new compared to the 12/22/2020 examination. N o scapular fracture can be seen. No clavicle fracture or shoulder fracture can be seen. No thoracic s pine fracture is seen. No suspicious bony lesions. No vertebral body compression fractures. Age-appropriate degenerative ch anges are seen. No axillary or supraclavicular adenopathy by size criteria. The thyroid is normal in size and there are no incidental findings.. Abdomen: Simple appearing liver cysts are seen involving the anterior central liver. Simple appearin g left renal cysts are also seen. Generalized thickening is seen of the neural glands, yet without fo radha nodules. The visualized portions of the upper abdominal structures are otherwise within normal li mits. IMPRESSION: 2 right posterior rib fractures are seen, without an associated pneumothorax. Scattered groundglass nodules are seen, which appear more prominent/or inflamed compared to the prior examination. Underlying inflammatory change is felt most likely. Multifocal infection is possible. P devin consider a follow-up noncontrast chest CT in approximately 3 months for further evaluation. Left lower lobe mucus plugging is seen, yet without significant associated atelectasis. Incidental note is made of: Moderate coronary artery calcification Liver cysts Left renal cysts Thickening of the adrenal glands, without focal nodules. Reviewed by: Kyler Tejeda MD on 08/30/2021 7:59 AM [facility] Approved by: Kyler Tejeda MD on 08/30/2021 7:59 AM [facility] Station ID: [id number]
--- NOTE | 2021-08-30 09:01 | CT Report ---
PROCEDURE: CERVICAL SPINE WO INDICATIONS: fall 2 days ago, head/trunk injury TECHNIQUE: Noncontrast 3 mm thick sections acquired from the skull base to the T4 level. Sagittal and coronal r eformats were then constructed. For radiation dose reduction, the following was used: automated exp osure control, adjustment of mA and/or kV according to patient size. COMPARISON: None. FINDINGS: Image quality: Excellent. Bones: No fracture or subluxation. There is irregularity along the anterior superior endplate of T1 likely representing a bridging osteophyte secondary to degenerative change. Irregularity along the an terior superior endplate of T2 likely reflects a limbus vertebra. There is straightening of the cervi radha lordosis. Mild anterolisthesis demonstrated at C6-C7 measuring approximately 0.3 cm. There is min imal anterolisthesis at C4-C5 and T2-T3. There is multilevel degenerative disc disease including mode rate severe degeneration at C5-C6 with endplate sclerosis and osteophytosis. There is also severe mul tilevel facet arthropathy throughout the cervical spine with fusion at C3-C4. Visualized superior rib s are intact. Soft tissues: Prevertebral soft tissues are normal in thickness. No paravertebral hematomas. No ap ical pneumothoraces. IMPRESSION: 1. No definite acute fracture or subluxation. 2. Irregularity along the anterior superior endplates of T1 and T2 likely reflect degenerative change and a limbus vertebra. 3. Extensive multilevel degenerative changes throughout cervical spine as described. 4. Mild multilevel anterolisthesis likely secondary to degenerative changes. Reviewed by: Alfredo Mishra MD on 08/30/2021 9:00 AM [facility] Approved by: Alfredo Mishra MD on 08/30/2021 9:00 AM [facility] Station ID: [id number]
--- NOTE | 2021-08-30 09:07 | CT Report ---
PROCEDURE: ABDOMEN W INDICATIONS: fall 2 days ago; mainly trunk injury CONTRAST: IV CONTRAST: Optiray 320 ml: 100 PO CONTRAST: *NO PO CONTRAST TECHNIQUE: After the administration of oral and intravenous contrast, 5 mm thick sections acquired from the diap hragms to the iliac crests. 5 mm thick coronal and sagittal reformats were acquired. For radiation dose reduction, the following was used: automated exposure control, adjustment of mA and/or kV accor ding to patient size. COMPARISON: Abdominal CT, 10/08/2015. Correlation is also made with the company CT examinations, 08/30. FINDINGS: Image quality: Excellent. Lung bases: Lung bases are clear. Heart size is normal. Solid organs: Liver and spleen are normal in size and enhancement. Simple appearing liver cysts are again seen. Gallbladder wall does not appear thickened. Biliary system is non dilated. Pancreas enhances normally. Generalized thickening is seen of the neural glands, yet without focal adrenal nodules. Kidneys are normal in size, without hydronephrosis. Simple appearing bilateral renal cysts are seen. Peritoneum and bowel: Contrast enhanced bowel loops appear normal in caliber. No free fluid or air. Diverticulosis can be seen, without jesus findings of active diverticulitis. A normal appendix is i ncidentally noted. Nodes and vessels: No retroperitoneal or mesenteric adenopathy by size criteria. Aorta and inferior vena cava are normal in size. Atherosclerotic calcification is seen. Bones: No suspicious bony lesions. No vertebral body compression fractures. No acute fractures are seen. The visualized bones of the pelvis are likewise unremarkable. Miscellaneous: No ventral hernia s. This patient is status post hysterectomy. No adnexal masses can be seen. Degenerative changes ar e seen throughout. Mild dextroconvex scoliotic curvature is seen. IMPRESSION: No significant posttraumatic abnormality is identified. Incidental note is made of: Liver cysts Renal cysts Thickening of the adrenal glands, yet without focal nodules Dextroconvex scoliotic curvature Normal appendix Diverticulosis, without active diverticulitis Hysterectomy Reviewed by: Kyler Tejeda MD on 08/30/2021 8:05 AM [facility] Approved by: Kyler Tejeda MD on 08/30/2021 8:05 AM [facility] Station ID: [id number]
[2021-08-30] MEDS ORDERED: IPRATROPIUM/ALBUTEROL 3 ML NEB INH STA (09:49)
[2021-08-30 10:27] LABS: B. PARAPERTUSSIS- RESP PCR PAN NOT DETECTED; B. PERTUSSIS- RESP PCR PANEL NOT DETECTED; C. PNEUMONIAE- RESP PCR PANEL NOT DETECTED; CORONAVIRUS 229E-RESP PCR NOT DETECTED; CORONAVIRUS HKU1-RESP PCR NOT DETECTED; CORONAVIRUS NL63-RESP PCR NOT DETECTED; CORONAVIRUS OC43-RESP PCR NOT DETECTED; HUMAN METAPNEUMOVIRUS NOT DETECTED; INFLUENZA A- RESP PCR PANEL NOT DETECTED; INFLUENZA B - RESP PCR PANEL NOT DETECTED; M. PNEUMONIAE- RESP PCR PANEL NOT DETECTED; PARAINFLUENZA VIRUS 1 NOT DETECTED; PARAINFLUENZA VIRUS 2 NOT DETECTED; PARAINFLUENZA VIRUS 3 NOT DETECTED; PARAINFLUENZA VIRUS 4 NOT DETECTED; RHINOVIRUS/ENTEROVIRUS NOT DETECTED; RSV- RESP PCR PANEL NOT DETECTED; SARS-CoV-2 -RESP PCR PANEL NOT DETECTED
[2021-08-30] MEDS ORDERED: oxyCODONE 5 MG TABLET PO STA (11:59)
[2021-08-30] MEDS ORDERED: DEXAMETHASONE 10 MG/ML VIAL IVP STA (12:00)
[2021-08-30] MEDS ORDERED: ACETAMINOPHEN 325 MG TABLET PO STA (12:00)
[2021-08-30 12:33] VITALS: BP 102/58
== END 2021-08-30 12:45 | disposition home or self-care (01) ==
LOC: ED 07:15
DX: S22.41XA Multiple fractures of ribs, right side, initial encounter for closed fracture (principal); S50.812A Abrasion of left forearm, initial encounter; W10.9XXA Fall (on) (from) unspecified stairs and steps, initial encounter; Y92.009 Unspecified place in unspecified non-institutional (private) residence as the place of occurrence of the external cause; I10 Essential (primary) hypertension; J43.9 Emphysema, unspecified; F17.200 Nicotine dependence, unspecified, uncomplicated
CPT/HCPCS: 36415; 70450; 71045; 71260; 72125; 74160; 80053; 83690; 83880; 84484; 85025; 87631; 93005; 94640; 96374; 96375; 96376; 99284; 99285; A9270; J1170; Q9967; 0202U

== ENCOUNTER 2021-09-05 10:14 | Emergency (ER) | payer MEDICARE, OTHER ==
[2021-09-05 10:24] VITALS: BP 97/45
[2021-09-05] MEDS ORDERED: KETOROLAC 60 MG/2 ML VIAL IM STA (11:07)
[2021-09-05] MEDS ORDERED: HYDROmorphone 1 MG/ML CARPUJECT IM STA (11:07)
--- NOTE | 2021-09-05 11:10 | ED Physician Documentation ---
History of Present Illness - Stated complaint Stated Complaint: RIB PX - Chief complaint Chief Complaint: General - History obtained from History obtained from: Patient - Additonal information Additional information: Patient returns to the emergency department for chief complaint of right rib pain. The patient took a fall about a week ago and states that she had been drinking at the time. She was diagnosed with multiple rib fractures without pneumothorax. Patient also has a history of COPD. She states that she was prescribed oxycodone 1 tablet every 6 hours, but that sometimes, she takes less than this because she is afraid of getting hooked on the medication. Patient states she only has 3 tablets of oxycodone left and that she is having a lot of pain in the right lateral chest. She states it hurts to take a deep breath but she can. No fevers or chills. No new cough. She has not been using the inhalers she was prescribed for her COPD because she does not know how. No other complaints at this time. Review of Systems Ten Systems: 10 systems reviewed and negative Constitutional: reports: Reviewed and negative Eyes: reports: Reviewed and negative Ears: reports: Reviewed and negative Nose: reports: Reviewed and negative Throat: reports: Reviewed and negative Cardiac: reports: Chest pain / pressure Respiratory: reports: Reviewed and negative GI: reports: Reviewed and negative : reports: Reviewed and negative Skin: reports: Reviewed and negative Musculoskeletal: reports: Reviewed and negative Neurologic: reports: Reviewed and negative Psychiatric: reports: Reviewed and negative Endocrine: reports: Reviewed and negative Immunocompromised: reports: Reviewed and negative PD PAST MEDICAL HISTORY - Past Medical History Cardiovascular: Hypertension, High cholesterol Respiratory: COPD, Emphysema Neuro: None Endocrine/Autoimmune: None GI: None SLOT OPERATIONS MANAGER: None : None HEENT: None Psych: None Musculoskeletal: None Derm: None - Past Surgical History Past Surgical History: Yes General: Colonoscopy Ortho: Other /SLOT OPERATIONS MANAGER: Hysterectomy - Present Medications Home Medications: Ambulatory Orders Medication Instructions Recorded Confirmed Aspirin [Aspir 81] 81 mg ORAL DAILY 04/16/14 09/05/21 Atenolol 100 mg ORAL DAILY 04/16/14 09/05/21 Lisinopril 40 mg PO DAILY 04/16/14 09/05/21 Pravastatin Sodium 40 mg PO DAILY 04/16/14 09/05/21 Albuterol Sulf [Ventolin Hfa 2 - 3 puffs INH Q4HR PRN #1 inhaler 08/30/21 09/05/21 Inhaler] Alendronate [Fosamax] 70 mg PO Q7D 08/30/21 09/05/21 Cholecalciferol [Vitamin D3] 5,000 unit PO DAILY 08/30/21 09/05/21 Fluticasone Propion/Salmeterol 1 each IH BID 30 Days #1 unit 08/30/21 09/05/21 [Fluticasone-Salmeterol 250-50] Ibuprofen 600 mg PO TID PRN 08/30/21 09/05/21 Triamterene/Hydrochlorothiazid 1 each PO DAILY 08/30/21 09/05/21 [Maxzide 37.5 mg-25 mg Tablet] oxyCODONE [Roxicodone] 5 mg PO Q6H PRN #20 tablet 08/30/21 09/05/21 Oxycodone HCl/Acetaminophen 1 - 2 each PO Q4H PRN #20 tablet 09/05/21 [Percocet 5-325 mg Tablet] - Allergies Allergies/Adverse Reactions: Allergies Allergy/AdvReac Type Severity Reaction Status Date / Time No Known Drug Allergies Allergy Verified 09/05/21 10:23 - Social History Does the pt smoke?: Yes Smoking Status: Current every day smoker Does the pt drink ETOH?: Yes Does the pt have substance abuse?: No - Immunizations Immunizations are current?: Yes PD ED PE NORMAL - Vitals Vital signs reviewed: Yes - General General: Alert and oriented X 3, No acute distress (Patient appears moderately uncomfortable but otherwise in no apparent distress.), Well developed/nourished - HEENT HEENT: Atraumatic, PERRL, EOMI, Moist mucous membranes - Neck Neck: Supple, no meningeal sign - Cardiac Cardiac: RRR, No murmur, Strong equal pulses - Respiratory Respiratory: No respiratory distress, Clear bilaterally - Abdomen Abdomen: Soft, Non tender, Non distended - Derm Derm: Normal color, Warm and dry, No rash - Extremities Extremities: No deformity, No edema, No calf tenderness / cord - Neuro Neuro: Alert and oriented X 3, toe lining closer 2-12 intact, Normal speech - Psych Psych: Normal mood, Normal affect Results - Vitals Vitals: Vital Signs - 24 hr 09/05/21 10:15 Temperature 36.0 C L Heart Rate 55 L Respiratory 14 Rate Blood Pressure 97/45 L O2 Saturation 99 Oxygen O2 Source Room air - Rads (name of study) cxr Radiology: Final report received, EMP read indepedently, See rad report (multiple R rib fx) PD MEDICAL DECISION MAKING - ED course Complexity details: reviewed results, re-evaluated patient, considered differential, d/w patient ED course: The patient was fairly well-appearing and her lungs were actually clear with good air movement. She was treated symptomatically with Dilaudid and Toradol in the emergency department. Her chest x-ray reaffirmed the presence of multiple right rib fractures. There is no evidence of pneumonia or pneumothorax. I d iscussed with the patient that she can take more of the oxycodone than she is, up to 2 tablets every 4 hours, as needed. We have addressed her concerns over addiction to the medication, and discussed that if she is taking the medication for actual pain needs, then this is appropriate. However, she continues to take the medication after her pain subsides, then this is a an inappropriate use of the medicine will put her at risk for addiction. At this point in time, however, I have discussed with her that it is important to have good pain control at home so that she can breathe well and mitigate the risk of pneumonia. The patient is feeling better. We have discussed home management and the usual indications for return. Departure - Departure Disposition: 01 Home, Self Care Clinical Impression: Ribs, multiple fractures Qualifiers: Encounter type: subsequent encounter Fracture type: closed Laterality: right Fracture healing: with routine healing Qualified Code(s): S22.41XD - Multiple fractures of ribs, right side, subsequent encounter for fracture with routine healing Condition: Stable Instructions: ED Fx Rib Prescriptions: Oxycodone HCl/Acetaminophen [Percocet 5-325 mg Tablet] 1 - 2 each PO Q4H PRN #20 tablet PRN Reason: pain Comments: Your x-ray today reaffirms the presence of rib fractures on the right. However, your lung looks good and shows no evidence of pneumonia or collapse. It is important that you get good pain control at home so that you can breathe well and avoid the risk of pneumonia. Dosing for Percocet, which includes oxycodone, allows for up to 2 tablets every 4 hours if needed. If you do not need this much then you should cut back, but it is within standard dosing limits to take as much as 2 tablets every 4 hours. A refill prescription has been prescribed for you today. Please follow-up with your primary care physician for further pain medication needs. Your prescription has been electronically transmitted to [facility] in [place].
--- NOTE | 2021-09-05 11:16 | XRAY Report ---
PROCEDURE: Ribs w/PA Chest RT INDICATIONS: injury/pain TECHNIQUE: 3 views of the right ribs were acquired, along with a single view chest. COMPARISON: CT chest 08/30/2021 FINDINGS: Surgical changes and devices: None. Bones and chest wall: Right lateral fourth and fifth and possibly sixth rib fractures are present lisette earing new compared to prior exam. Previously noted right first and third rib fractures are again vis ualized. It appears slightly more displaced when compared to prior exam. No suspicious bony lesions. Overlying soft tissues appear unremarkable. Lungs and pleura: No pleural effusions or definitive pneumothorax. There is a questionable pleural l ucency identified on oblique views. Mediastinum: Mediastinal contours appear normal. Heart size is normal. IMPRESSION: Fractures as above. Pleural lucency is noted on oblique view suspected to be artifactual. However, gi crystal presence of displaced rib fractures, pneumothorax cannot be excluded. CT chest is recommended for further evaluation. Reviewed by: Jennyfer Sanchez MD on 09/05/2021 11:15 AM PST Approved by: Jennyfer Sanchez MD on 09/05/2021 11:15 AM PST Station ID: [id number]
== END 2021-09-05 12:02 | disposition home or self-care (01) ==
LOC: ED 10:14
DX: S22.41XA Multiple fractures of ribs, right side, initial encounter for closed fracture (principal); W19.XXXA Unspecified fall, initial encounter; I10 Essential (primary) hypertension; J43.9 Emphysema, unspecified; F17.200 Nicotine dependence, unspecified, uncomplicated
CPT/HCPCS: 71101; 96372; 99283; J1170

== ENCOUNTER 2021-12-23 11:00 | Outpatient (CLI) | payer MEDICARE, OTHER ==
--- NOTE | 2021-12-23 11:45 | DEXA Report ---
PROCEDURE: Dexa Spine and/or Hip INDICATIONS: AGE RELATED OSTEOPOROSIS NO CURRENT FX TECHNIQUE: Dual energy x-ray absorptiometry (DXA) was performed on a ViRTUAL INTERACTiVE System. Regions measur ed are the AP Spine, femoral neck, and if needed forearm. COMPARISON: Prior studies dating back to January 10, 2019. FINDINGS: Lumbar Spine: Bone Mineral Density 1.410 g/cm/cm,T score 1.9, normal Left Femoral Neck: Bone Mineral Density 0.642 g/cm/cm, T score -2.8, osteoporosis Total: Bone Mineral Density 0.661 g/cm/cm,T score -2.8, osteoporosis; -10.6% change from prior. (T score greater or equal to -1.0: NORMAL) (T score from -1.1 to -2.4: OSTEOPENIA) (T score less than or equal to -2.5 to: OSTEOPOROSIS) Impression: Bone mineral density as detailed above. Patients with diagnosis of osteoporosis or osteopenia should have regular bone mineral density assess ment. For those eligible for Medicare, routine testing is allowed once every 2 years. Testing frequ ency can be increased for patients who have rapidly progressing disease or for those who are receivin g medical therapy to restore bone mass. Reviewed by: Calvin Gonzales MD on 12/23/2021 11:43 AM PDT Approved by: Calvin Gonzales MD on 12/23/2021 11:43 AM PDT Station ID: [id number]
== END 2021-12-23 11:01 | disposition home or self-care (01) ==
LOC: DI 11:00
PROVIDERS: ATTEND Nurse Practitioner Family
DX: M81.0 Age-related osteoporosis without current pathological fracture (principal)

== ENCOUNTER 2022-11-01 09:02 | Outpatient (CLI) | payer MEDICARE, OTHER ==
--- NOTE | 2022-11-01 13:44 | CT Report ---
PROCEDURE: CHEST WO INDICATIONS: MULTIPLE LUNG NODULES TECHNIQUE: Noncontrast 1mm axial images were acquired from the pulmonary apices to the posterior costophrenic an gles. Axial 5 mm soft tissue kernel reconstructions were performed as well as 8 mm axial MIP and cor onal and sagittal 5 mm reformations. For radiation dose reduction, the following was used: automate d exposure control, adjustment of mA and/or kV according to patient size. COMPARISON: Chest x-ray 08/15/2022, 05/19/2022, 11/11/2019 FINDINGS: Image quality: Excellent. Lungs and pleura: No acute air space opacities. No pleural effusions or pneumothorax. Central and peripheral airways are patent and normal in caliber. Spiculated appearing 1.1 cm subsolid mass in the posterior right upper lobe on series 4 image 117, un changed. Groundglass appearing nodule in the posterior left lower lobe series 4 image 97 measuring ap proximately 70 mm is unchanged. Streaky medial left upper lobe opacities are present suspected be rel ated to atelectasis. Mediastinum: Heart size is normal. No pericardial effusion. No mediastinal adenopathy by size crit eria. Thoracic aorta and central pulmonary arteries are normal in size. Esophagus is normal in osman pamela. No hiatal hernia. Bones and chest wall: No suspicious bony lesions. No vertebral body compression fractures. No axil khai or supraclavicular adenopathy by size criteria. The thyroid is normal in size and there are no incidental findings. Abdomen: Simple hepatic cyst is again noted. Otherwise, visualized upper abdominal solid organs and bowel loops appear normal in the absence of contrast. IMPRESSION: Stable right upper lobe spiculated mass and groundglass appearing mass in the left lower lobe compare d to 08/15/2022. Spiculated mass is highly concerning for malignancy. As clinically indicated, biopsy or PET scan is recommended. Groundglass lower lobe nodule is stable since prior exam. However overall groundglass appearance has become more progressive since 2020. Malignancy cannot be definitively excluded. CLINICAL RECOMMENDATION STATEMENTS: In patients <35 years with an ITN detected on CT, MRI, or extrathyroidal ultrasound, the Committee re commends further evaluation with dedicated thyroid ultrasound if the nodule is "e1 cm and has no susp icious imaging features, and if the patient has normal life expectancy. In patients "e35 years with an ITN detected on CT, MRI, or extrathyroidal ultrasound, the Committee r ecommends further evaluation with dedicated thyroid ultrasound if the nodule is "e1.5 cm and has no s uspicious imaging features, and if the patient has normal life expectancy. (ACR, 2014) Reviewed by: Jennyfer Sanchez MD on 11/01/2022 1:42 PM PST Approved by: Jennyfer Sanchez MD on 11/01/2022 1:42 PM PST Station ID: [id number]
== END 2022-11-01 09:03 | disposition home or self-care (01) ==
LOC: DI 09:02
PROVIDERS: ATTEND Nurse Practitioner Family
DX: R91.8 Other nonspecific abnormal finding of lung field (principal)

== ENCOUNTER 2023-07-09 08:55 | Outpatient (CLI) | payer MEDICARE, OTHER ==
--- NOTE | 2023-07-10 15:47 | Mammography Report ---
BILATERAL DIGITAL SCREENING MAMMOGRAM 3D/2D WITH EXAGGERATED CC: 07/09/2023 CLINICAL: Routine screening. Family history of breast cancer. Comparison is made to exams dated: 05/19/2022 mammogram, 04/13/2021 mammogram, and 03/14/2021 mammogram - [facility]. Both breasts are heterogeneously dense, which may obscure small masses (category c / 51-75% glandular tissue). There are benign calcifications in both breasts. No significant masses, calcifications, or other findings are seen in either breast. There has been no significant interval change. IMPRESSION: BENIGN There is no mammographic evidence of malignancy. A 1 year screening mammogram is recommended. Based on the Tyrer Cuzick model (a risk assessment model) the patients lifetime risk is 6.9% and her 10 year risk is 0.0%. According to the ACR, ACS, and NCCN guidelines, an annual breast MRI exam demar g with mammogram is recommended if the patients lifetime risk is 20% or greater. This exam was interpreted at Station ID: [id number]. NOTE: For mammograms, a report in lay terms will be sent to the patient. Approximately 15% of breast malignancies will not be visualized mammographically. In the management of a palpable breast mass, a negative mammogram must not discourage biopsy of a clinically suspicious lesion. Electronically Signed By: Taylor miner/ryan:07/09/2023 17:13:01 letter sent: No_Letter ACR BI-RADS Category 2: Benign Finding(s) 3342F PARENCHYMAL PATTERN: (D) - The breast(s) demonstrate(s) heterogeneously dense fibroglandular florencia hong. BI-RADS CATEGORY: (2) - 2 Mammogram [id number] 1 year screening LATERALITY: (B)
== END 2023-07-09 08:56 | disposition home or self-care (01) ==
LOC: DI.S 08:55
PROVIDERS: ATTEND Nurse Practitioner Family
DX: Z12.31 Encounter for screening mammogram for malignant neoplasm of breast (principal); R92.333 Mammographic heterogeneous density, bilateral breasts; Z80.3 Family history of malignant neoplasm of breast